=== PATIENT | male | born 1960 | race Caucasian/White ===

== ENCOUNTER 2018-07-15 08:20 | Day surgery (SDC) | payer OTHER, SELFPAY ==
[2018-07-09 10:44] VITALS: BMI 23.1
[2018-07-15] VITALS (9 sets, daily range): BP systolic 109–141; BP diastolic 61–90; PULSE 71–85; RESP 10–15; TEMP 36.8–37.6; O2SAT 94–99; BMI 21.8
[2018-07-15] MEDS: LACTATED RINGERS 1,000 ML 42 ML IV (08:52)
--- NOTE | 2018-07-15 08:52 | PM.PREOP ---
Pre-operative Note Interval Note History & Physical reviewed/Exam performed by Physician: Yes Changes to H&P: No H&P completed within 30 days and has changed as indicated here:: Patient seen and examined in the preoperative area today. His history and physical examination as documented on the chart June 18, 2018 has not changed. Proceed with open bilateral inguinal hernia repairs today as planned.
[2018-07-15] MEDS: CEFAZOLIN 2 GM/100 ML FROZ.PIGGY IV (09:00)
--- NOTE | 2018-07-15 09:37 | SUR.OPER ---
Supine on padded OR bed, head on pillow, arms secured on padded arm boards at <90 degrees abduction, legs uncrossed, safety belt at thigh, tape over blanket over lower legs.
[2018-07-15] MEDS: BUPIVACAINE 0.5% (PF) VIAL 30 ML INJ (09:47)
[2018-07-15] MEDS: LIDOCAINE 1% W/EPI INJ 20 ML INJ (09:48)
[2018-07-15] MEDS: CEFAZOLIN 1 GM VIAL IRR (09:51)
--- NOTE | 2018-07-15 11:47 | PM.OP.1 ---
Operative Date/Time/Diagnoses Date of procedure: 07/15/18 Time of procedure: 11:47 Pre-op diagnosis: Symptomatic bilateral inguinal hernias Post-op diagnosis: other (Symptomatic right pantaloon hernias and symptomatic left direct hernia) Procedure & Clinicians Procedure: Open repair of bilateral inguinal hernias with mesh Same procedure as scheduled: Yes Indications: 58-year-old male who present with bilateral painful reducible inguinal masses. Examination and evaluation were consistent with bilateral hernias. Open bilateral inguinal hernia repair with mesh was recommended. Surgeon: Johann Peres Click Yes if Unassisted: Yes Anesthesia Type: General Operative Notes Findings: 1. Reducible direct and indirect hernias of the right inguinal canal 2. Large direct hernia in the left inguinal canal Closure Type: primary Specimen(s): none sent Prosthetic devices, grafts, tissues, transplants, or devices: Medium-size ProLoop polypropylene mesh plug and patch into bilateral inguinal canals Applied: implant(s) (See above) Estimated Blood Loss (mL): 20 Blood products transfused: none Procedure in detail: After obtaining informed consent the patient was brought to the operating room placed supine on the table. After satisfactory induction of anesthesia the abdomen and genitalia were prepped and draped in usual sterile fashion. SCOAP time out was performed per standard protocol. Symmetric transverse incisions were designed in the lower aspect of the inguinal canals bilaterally. Attention was turned initially to the right side. Skin and subcutaneous tissue was infiltrated with a 1-1 mixture 1% lidocaine with 1:100,000 epinephrine and 0.5% plain Marcaine for postoperative analgesia. Skin incision was created with 10 scalpel blade followed by the Bovie for hemostasis. Dissection proceeded down with the superficial epigastric vein was identified, clamped between hemostats, divided with scissors, and ligated with 2 0 Vicryl ties. Weitlaner retractor was used to provide exposure. Dissection proceeded down to the external oblique fascia using the Bovie. Fascia was divided in the direction of its fibers with a 15 scalpel blade followed by Metzenbaum scissors. Edges of the fascia was secured with hemostats. Blunt dissection was employed to expose the ileopubic tract, conjoined tendon, and rectus fascia. Spermatic cord and adjacent structures were then encircled bluntly with the surgeon's finger followed by Mona drain. Meticulous blunt dissection using DeBakey forceps was employed to skeletonize the spermatic cord. Cremasteric fibers were divided with Bovie. Great care was taken to avoid injury to the ilioinguinal nerve. Findings are as above. Hernias were then reduced and mesh brought onto the operative field. Mesh was soaked in Ancef solution. Mesh plug was placed in the internal inguinal ring and secured circumferentially with interrupted 2 0 Vicryl suture. Onlay patch was placed over the floor the inguinal canal and secured circumferentially with interrupted 0 Tycron suture. Anteriorly the mesh was secured to the conjoined tendon while laterally was secured to the iliopubic tract. Medially mesh was secured to the rectus fascia. Tails of the mesh were brought around the spermatic cord and placed deep to the external oblique fascia where they were secured with a single 0 Tycron suture. Great care was taken avoid strangulation of the spermatic cord. Wound was irrigated and noted to be hemostatic. Spermatic cord was placed back into its usual anatomic position. External oblique fascia was closed over the cord with running 3 0 Vicryl suture. Subcutaneous tissue was reapproximated with interrupted 3 0 Vicryl suture as well. Skin was closed in running subcuticular fashion with 4 0 Monocryl suture. Dermal adhesive was applied to the skin. Attention was then turned to the left inguinal canal and the repair proceeded in a similar fashion with findings as above. Testicles were noted to be in normal descended position at the conclusion of the case. Anesthesia was reversed and patient extubated in the operating room. He was taken recovery stable condition. Complications: none Condition: stable Disposition: PACU Plan for aftercare: 1. Discharge home 2. Follow up in surgery Clinic in 2 weeks
== END 2018-07-15 12:39 | disposition home or self-care (01) ==
PROVIDERS: Visit Provider Surgery
PROC: (CPT 49505; principal; 2018-07-15 09:45)
DX: K40.20 Bilateral inguinal hernia, without obstruction or gangrene, not specified as recurrent (principal); F17.210 Nicotine dependence, cigarettes, uncomplicated
CPT/HCPCS: 49505; C1781; J0690; J1100; J1885; J2250; J2405; J2704; J3010